=== PATIENT | male | born 1995 | race American Indian/Alaskan Native ===

== ENCOUNTER 2020-09-02 21:40 | Emergency (ER) | payer SELFPAY ==
--- NOTE | 2020-09-02 21:51 | Emergency Department Report ---
ED General Adult HPI - General Stated complaint: THOOTH PAIN, HEADACHE Time Seen by Provider: 09/02/20 21:46 - History of Present Illness Initial comments: 25-year-old -[place] male patient presents with complaints of left upper dental pain x3 days. He states he had a fever of 103 that subsides with Tylenol and ibuprofen. He rates his current pain as a 7/10 in severity and denies any difficulty opening his jaw, dysphagia, or facial swelling. Patient states he does plan to follow-up with a dentist tomorrow morning. - Related Data Previous Rx's Medication Instructions Recorded Last Taken Type Acetaminophen/Codeine [Tylenol 1 tab PO Q8H PRN #8 tab 09/02/20 Unknown Rx /Codeine # 3 tab] Ibuprofen [Motrin 800 MG tab] 800 mg PO Q8HR PRN #21 tablet 09/02/20 Unknown Rx Penicillin V Potassium 500 mg PO QID 7 Days #28 tablet 09/02/20 Unknown Rx Allergies Allergy/AdvReac Type Severity Reaction Status Date / Time No Known Allergies Allergy Verified 09/02/20 21:47 ED Review of Systems ROS: Stated complaint: THOOTH PAIN, HEADACHE Other details as noted in HPI Constitutional: denies: chills, diaphoresis, fever, malaise, weakness ENT: denies: throat pain Respiratory: denies: cough Cardiovascular: denies: chest pain Gastrointestinal: denies: nausea, vomiting Skin: denies: rash, lesions, change in color Neurological: denies: numbness, paresthesias ED Past Medical Hx - Medications Home Medications: Home Medications Medication Instructions Recorded Confirmed Last Taken Type Acetaminophen/Codeine [Tylenol 1 tab PO Q8H PRN #8 tab 09/02/20 Unknown Rx /Codeine # 3 tab] Ibuprofen [Motrin 800 MG tab] 800 mg PO Q8HR PRN #21 tablet 09/02/20 Unknown Rx Penicillin V Potassium 500 mg PO QID 7 Days #28 tablet 09/02/20 Unknown Rx ED Physical Exam - General General appearance: alert, in no apparent distress - Head Head exam: Present: atraumatic, normocephalic - Eye Eye exam: Present: normal appearance. Absent: scleral icterus - Expanded ENT Exam Expanded Mouth exam: Absent: drooling, trismus 1 - Dental Tenderness (Mild surrounding erythema without swelling or obvious dental abscess; no overlying facial swelling noted) Throat exam: Positive: normal inspection - Neck Neck exam: Present: normal inspection - Respiratory Respiratory exam: Absent: respiratory distress - Cardiovascular Cardiovascular Exam: Present: regular rate - Extremities Exam Extremities exam: Present: full ROM - Back Exam Back exam: Present: full ROM - Neurological Exam Neurological exam: Present: alert, oriented X3, normal gait - Psychiatric Psychiatric exam: Present: normal affect, normal mood - Skin Skin exam: Present: warm, dry, intact, normal color. Absent: rash ED Medical Decision Making - Medical Decision Making 25-year-old -[place] male patient presents with complaints of left upper dental pain x3 days. He states he had a fever of 103 that subsides with Tylenol and ibuprofen. He rates his current pain as a 7/10 in severity and denies any difficulty opening his jaw, dysphagia, or facial swelling. Patient states he does plan to follow-up with a dentist tomorrow morning. We will treat with penicillin and pain medications. His vitals are normal, he is well-appearing, he is stable for discharge home. Patient provided with dental specialist and informed to follow-up first thing tomorrow morning. Discussed signs and symptoms that should prompt immediate return to the emergency department in detail with patient verbalized understanding. Critical care attestation.: If time is entered above; I have spent that time in minutes in the direct care of this critically ill patient, excluding procedure time. ED Disposition Clinical Impression: Pain, dental Disposition: [id number] TO HOME OR SELFCARE Is pt being admited?: No Condition: Stable Instructions: Dental Abscess Additional Instructions: Please follow-up with the dental specialist tomorrow morning 09/03/20 Prescriptions: Ibuprofen [Motrin 800 MG tab] 800 mg PO Q8HR PRN #21 tablet PRN Reason: Pain, Moderate (4-6) Penicillin V Potassium 500 mg PO QID 7 Days #28 tablet Acetaminophen/Codeine [Tylenol /Codeine # 3 tab] 1 tab PO Q8H PRN #8 tab PRN Reason: Pain , Severe (7-10)
[2020-09-02 21:52] VITALS: BP 114/67
== END 2020-09-02 22:30 | disposition home or self-care (01) ==
LOC: ED 21:40
DX: K08.89 Other specified disorders of teeth and supporting structures (principal); Z79.899 Other long term (current) drug therapy
CPT/HCPCS: 99282